=== PATIENT | male | born 1960 | race Caucasian/White ===

== ENCOUNTER 2020-09-18 15:41 | Outpatient (RCR) | payer OTHER, SELFPAY | END 2020-09-18 23:59 | LOC: IMMUN 15:41 | PROVIDERS: PCP Family Medicine; Referring Provider Family Medicine; Visit Provider Family Medicine | DX: Z23 Encounter for immunization (principal) | CPT/HCPCS: 0001A; 91300 ==

== ENCOUNTER → 2021-12-06 | Outpatient (CLI) | payer OTHER, SELFPAY ==
[2021-12-06 18:37] LABS: CRP < 2.90 mg/L (0.0-3.0)
[2021-12-08 16:09] LABS: Endomysial Antibody IgA Negative (Negative)
[2021-12-09 16:54] LABS: Immunoglobulin A 312 mg/dL (61-437); t-Transglutaminase IgA <2 U/mL (0-3)
== END | disposition home or self-care (01) ==
LOC: MTLAB 15:53
PROVIDERS: PCP Family Medicine; Referring Provider Internal Medicine Gastroenterology; Visit Provider Internal Medicine Gastroenterology
DX: R10.9 Unspecified abdominal pain (principal)
CPT/HCPCS: 36415; 82784; 83516; 86140; 86255

== ENCOUNTER → 2022-02-24 | Outpatient (CLI) | payer OTHER, SELFPAY ==
--- NOTE | 2022-02-24 08:20 | EKG12_ITS ---
Test Reason : PRE OP Blood Pressure : / mmHG Vent. Rate : 055 BPM Atrial Rate : 055 BPM P-R Int : 166 ms QRS Dur : 078 ms QT Int : 402 ms P-R-T Axes : 069 033 050 degrees QTc Int : 384 ms Sinus bradycardia Otherwise normal ECG Confirmed by MERY PARRA, BRIGIDA ([id number]), acquisition editor NEAL EARLY ([id number]) on 02/25/2022 2:06:32 PM Referred By: Herminio Romero Confirmed By:DELIO ORDONEZ MD
== END | disposition home or self-care (01) ==
LOC: PSN 08:18
PROVIDERS: PCP Family Medicine; Referring Provider Urology; Visit Provider Urology
DX: Z01.810 Encounter for preprocedural cardiovascular examination (principal)
CPT/HCPCS: 93005

== ENCOUNTER → 2022-03-17 | Outpatient (CLI) | payer OTHER, SELFPAY ==
[2022-03-17 16:08] LABS: Hematocrit 45.3 % (40-54); Hemoglobin 15.6 g/dL (13.0-16.5); Mean Corp Hgb Conc 34.4 g/dL (32-36); Mean Corpuscular Hgb 32.9 pg (27.0-32.0); Mean Corpuscular Volume 95.6 fL (80-94); Mean Platelet Vol. 9.2 fl (6.2-12.0); Platelet Count 235 K/mm3 (150-450); RBC Distribution Width CV 12.2 % (11.6-14.6); RBC Distribution Width SD 43.4 fl (35.1-43.9); Red Blood Count 4.74 M/mm3 (4.6-6.2); White Blood Count 4.9 K/mm3 (4.4-11.0)
[2022-03-17 17:04] LABS: Anion Gap 6 (5-15); BUN 17 mg/dL (7-18); BUN/Creat Ratio 11.3 RATIO (10-20); Calcium,Total 8.9 mg/dL (8.5-10.1); Chloride 106 mmol/L (98-107); Creatinine, Serum 1.51 mg/dL (0.70-1.30); EST Glomerular Filtration Rate 50 mL/min (>60); Est Glom Filt Rate - Afr Amer 61 mL/min (>60); Glucose 95 mg/dL (74-106); Potassium 3.7 mmol/L (3.5-5.1); Sodium Level 140 mmol/L (136-145)
== END | disposition home or self-care (01) ==
LOC: LAB 15:30
PROVIDERS: PCP Family Medicine; Visit Provider Urology
DX: Z01.812 Encounter for preprocedural laboratory examination (principal)
CPT/HCPCS: 36415; 80048; 85027

== ENCOUNTER 2022-03-25 17:14 | Observation (INO) | payer OTHER, SELFPAY ==
[2022-03-25 17:15] VITALS: BP 115/73; PULSE 50; RESP 16; TEMP 36.2; O2SAT 100; BMI 22.7
--- NOTE | 2022-03-25 17:57 | EDS_ITS ---
HPI History of Present Illness Chief Complaint: Flank Pain Informant: patient and spouse/S.O. Narrative Narrative: [id number] male states that this morning he underwent lithotripsy with Dr. Romero [place]. He states he had a stone on his right side. He states that once he woke up he began to have some horrible pain in his right flank and is umbilical area. He states he went home took some Percocet and Zofran and ibuprofen and is continued to vomit and have pain. Family states they attempted to reach Dr. Romero but the instructions on the discharge stated that if he was vomiting to come to emergency and he really was not able to tolerate much p.o. fluids. He states he is urinated 3 times the first tube was bloody and the second 1 was more of a cola colored. No fevers. No bruising. PFSH PFSH Medical History (Updated 03/25/22 @ 18:[address] Bear Seals DO) Kidney stones Home Medications bismuth subsalicylate 262 mg tablet (Kaopectate (bismuth subsalicylate)) 1 tab PO DAILY PRN PRN IBS 03/25/22 [History Last Taken 2 Days Ago ~03/23/22] Allergy/AdvReac Type Severity Reaction Status Date / Time azithromycin AdvReac PT UNSURE Verified 03/25/22 17:14 [From Zithromax Z-Edil] OF REACTION hydromorphone [From Dilaudid] AdvReac Vomiting Verified 03/25/22 17:14 Surgical History (Updated 03/25/22 @ 18:[address] Bear Seals DO) Hx of lithotripsy Social History (Updated 03/25/22 @ 17:[address] Bear Seals DO) Smoking Status: Never smoker substance use type: does not use ROS ROS ED Constitutional Constitutional ED: Denies chills, fever(s) or weight loss Eyes Eyes: Denies change in vision or diplopia ENT ENT ED: Denies ear pain, rhinorrhea or sore throat Cardiovascular Cardiovascular: Denies chest pain, orthopnea, palpitations or racing heartbeat Respiratory/Chest Respiratory/Chest: Denies cough, dyspnea or orthopnea Gastrointestinal Gastrointestinal: Reports abdominal pain, nausea and vomiting; Denies diarrhea Genitourinary Genitourinary ED: Reports hematuria; Denies dysuria or urinary frequency Musculoskeletal Musculoskeletal: Denies arthralgias or myalgias Integumentary Denies abscess or rash Neurologic Neurologic: Denies headache(s) or weakness Psychiatric Psychiatric: Denies anxiety, depression, suicidal ideation or suicidal thoughts Endocrine Endocrinology: Denies polydipsia, polyphagia or polyuria Allergic/Immunologic Allergic/Immunologic ED: Denies mouth swelling, tongue swelling or urticaria EXAM Physical Exam Const Vital Signs: 03/25/22 17:15 03/25/22 17:48 Temperature 97.2 F L Temperature Source Temporal Pulse Rate 50 L Respiratory Rate 16 Respiratory Effort Normal Respiratory Pattern Normal Blood Pressure 115/73 Blood Pressure Mean 87 Pulse Ox 100 Oxygen Delivery Method Room Air Positive well nourished and well developed General Appearance ED: well developed HEENT Reports normocephalic, head/scalp atraumatic and moist mucous membranes Eyes PERRL and EOMs intact bilaterally Neck no lymphadenopathy, supple and no JVD Resp normal respiratory effort and clear to auscultation bilaterally Cardio regular rate, regular rhythm and no murmurs GI normal to inspection, nondistended, normoactive bowel sounds and non-tender Palpation: soft Back/Spine no CVA tenderness and normal ROM Extremity normal to inspection General Extremety ED: Negative for edema General Extremity: Negative for edema Neuro oriented x3 and CN's II-XII intact bilaterally Sensorium / Orientation: alert Motor Exam: strength 5/5 throughout Psych mental status grossly normal Mood & Affect: Negative for depressed or tearful Skin no rashes or lesions noted and no wounds MDM MDM MDM Narrative Medical decision making narrative: White count of 10. Creatinine 1.51. CT abdomen pelvis demonstrates ur eterolithiasis distally some hydronephrosis. Patient received pain and nausea medications as well as IV fluids. I spoke with Dr. Romero who is come to the emergency department to evaluate the patient and he will admit the patient to his service and plan on ureteral stent tomorrow. Lab Data Attestation: I reviewed the patient's lab results. Labs: Laboratory Results - last 24 hr 03/25/22 03/25/22 17:55 17:55 WBC 10.0 RBC 4.82 Hgb 15.6 Hct 46.7 MCV 96.9 H MCH 32.4 H MCHC 33.4 RDW Std Deviation 43.4 RDW Coeff of Marcie 12.0 Plt Count 258 MPV 9.4 Immature Gran % (Auto) 0.500 Neut % (Auto) 93.1 H Lymph % (Auto) 3.9 L [place] % (Auto) 2.4 Eos % (Auto) 0.0 Baso % (Auto) 0.1 Absolute Neuts (auto) 9.3 H Absolute Lymphs (auto) 0.39 L Nucleated RBC % 0 Sodium 137 Potassium 4.1 Chloride 101 Carbon Dioxide 27.0 Anion Gap 9 BUN 15 Creatinine 1.51 H Estim Creat Clear Calc 53.72 Est GFR (MDRD) Af Amer 61 Est GFR (MDRD) Non-Af 50 L BUN/Creatinine Ratio 9.9 L Glucose 129 H Calcium 9.3 Discharge Plan Dx/Rx/DC Orders Clinical Impression: Hx of lithotripsy, Ureterolithiasis, Acute right flank pain Disposition Disposition: Acute Care [facility]
--- NOTE | 2022-03-25 17:57 | CT_ITS ---
STUDY: CT Abdomen And Pelvis W/O Contrast Injection 03/25/2022 6:44 PM REASON FOR EXAM: Male, 61 years old. ABDOMINAL PAIN Kidney Stone TECHNIQUE: Transaxial images were obtained without oral contrast, and without intravenous contrast. Individualized dose optimization techniques were used for this CT. COMPARISON: None. FINDINGS: The visualized lung bases are unremarkable. The visualized portions of the heart are within normal limits. There are hypodensities of the liver. These maybe cysts but are indeterminate and other etiologies are not excluded. ACR White Paper guidelines ([place], et al. JACR 2017; 14(11):4057-4733.) suggest the following. For patients with low risk of malignancy, no further follow-up is necessary. For patients with high risk of malignancy (known malignancy with a propensity to metastasize to the liver, cirrhosis, and/or other hepatic risk factors), recommend follow-up abdominal CT or MR in 6 months. Unremarkable gallbladder and extrahepatic biliary system. Unremarkable spleen. Unremarkable pancreas. Unremarkable bilateral adrenal glands. Non obstructive 2 mm right renal parenchymal stones. Mild hydronephrosis caused by right distal ureteral stone and 3.4 mm and 2 mm UVJ stone. No acute findings of the left kidney. Unremarkable visualized stomach. Unremarkable small intestine. There are multiple colonic diverticula consistent with diverticulosis. There is non-visualization of the appendix. There are no acute findings of the abdominal aorta. Unremarkable inferior vena cava. Subcentimeter mesenteric lymph nodes. Unremarkable urinary bladder. There are prostatic calcifications. Unremarkable abdominal wall. Unremarkable osseous structures. CT/Abdomen/Pelvis without Cont IMPRESSION: (NOT LISTED IN ORDER OF SIGNIFICANCE) Liver hypodensities. ACR White Paper guidelines ([place], et al. JACR 2017; 14(11):4780-5989.) suggest the following. For patients with low risk of malignancy, no further follow-up is necessary. For patients with high risk of malignancy (known malignancy with a propensity to metastasize to the liver, cirrhosis, and/or other hepatic risk factors), recommend follow-up abdominal CT or MR in 6 months. Mild hydronephrosis caused by right distal ureteral stone and 3.4 mm and 2 mm UVJ ureteral stone Other findings as above. Electronically Signed: Timo Solis MD at 18:48 EDT ,
[2022-03-25 18:13] LABS: Absolute Lymphocyte Count 0.39 X10^3/uL (0.83-4.51); Absolute Neutrophil Count 9.3 X10^3/uL (2.0-7.7); Basophil# 0.01 X10^3/uL; Basophil% 0.1 % (0-1); Hematocrit 46.7 % (40-54); Hemoglobin 15.6 g/dL (13.0-16.5); Lymphocyte # 0.39 X10^3/ul (0.83-4.51); Lymphocyte % 3.9 % (19-41); Mean Corp Hgb Conc 33.4 g/dL (32-36); Mean Corpuscular Hgb 32.4 pg (27.0-32.0); Mean Corpuscular Volume 96.9 fL (80-94); Mean Platelet Vol. 9.4 fl (6.2-12.0); Monocyte# 0.24 X10^3/uL; Monocyte% 2.4 % (0-10); NRBC Flagged by Analyzer 0 % (0-5); Neutrophil # 9.27 X10^3/uL (2.7-7.7); Neutrophil % 93.1 % (47-70); POSITIVE DIFFERENTIAL YES; Platelet Count 258 K/mm3 (150-450); RBC Distribution Width SD 43.4 fl (35.1-43.9); Red Blood Count 4.82 M/mm3 (4.6-6.2)
[2022-03-25] MEDS: Ondansetron 4 MG/2 ML Vial IV (18:15)
[2022-03-25] MEDS: Ketorolac 15 MG/ML Vial IV (18:15)
[2022-03-25] MEDS: Morphine 4 MG/ML Syringe IV (18:15)
[2022-03-25] MEDS: 0.9% Normal Saline 1,000 ML 999 ML IV (18:15)
[2022-03-25 18:27] LABS: Anion Gap 9 (5-15); BUN 15 mg/dL (7-18); BUN/Creat Ratio 9.9 RATIO (10-20); Calcium,Total 9.3 mg/dL (8.5-10.1); Chloride 101 mmol/L (98-107); Creatinine, Serum 1.51 mg/dL (0.70-1.30); EST Glomerular Filtration Rate 50 mL/min (>60); Est Glom Filt Rate - Afr Amer 61 mL/min (>60); Estimated Creatinine Clearance 53.72 ml/min; Glucose 129 mg/dL (74-106); Potassium 4.1 mmol/L (3.5-5.1); Sodium Level 137 mmol/L (136-145)
[2022-03-25 18:43] LABS: Differential Indicated SCAN CRITERIA MET
--- NOTE | 2022-03-25 18:48 | PCM.HP.STD ---
HPI - General General Date of Service: 03/25/22 HPI Narrative LAZ JOSEPH, is a 61 M who presents to emergency room with severe renal colic Lithotripsy done and presented with severe colic CAT scan was done demonstrated small several small stones Steinstrasse in the right ureter there are passing but he had severe pain so plan to admit the patient for pain control and he will probably need a stent tomorrow. PFSH Medical History (Updated 03/25/22 @ 18:[address] Bear Seals DO) Kidney stones Home Medications bismuth subsalicylate 262 mg tablet (Kaopectate (bismuth subsalicylate)) 1 tab PO DAILY PRN PRN IBS 03/25/22 [History Last Taken 2 Days Ago ~03/23/22] Allergy/AdvReac Type Severity Reaction Status Date / Time azithromycin AdvReac PT UNSURE Verified 03/25/22 17:14 [From Zithromax Z-Edil] OF REACTION hydromorphone [From Dilaudid] AdvReac Vomiting Verified 03/25/22 17:14 Surgical History (Updated 03/25/22 @ 18:[address] Bear Seals DO) Hx of lithotripsy Social History (Updated 03/25/22 @ 17:[address] Bear Seals DO) Smoking Status: Never smoker substance use type: does not use Vital Signs Vital Signs Vital Signs: 03/25/22 17:15 03/25/22 17:48 Temperature 97.2 F L Temperature Source Temporal Pulse Rate 50 L Respiratory Rate 16 Respiratory Effort Normal Respiratory Pattern Normal Blood Pressure 115/73 Blood Pressure Mean 87 Pulse Ox 100 Oxygen Delivery Method Room Air Weight Weight: 73.936 kg Body Mass Index (BMI) 22.7 Results Lab / Micro Data Result Diagrams: 03/25/22 17:55 03/25/22 17:55 Labs: Laboratory Results - last 24 hr 03/25/22 17:55: WBC 10.0, RBC 4.82, Hgb 15.6, Hct 46.7, MCV 96.9 H, MCH 32.4 H, MCHC 33.4, RDW Std Deviation 43.4, RDW Coeff of Marcie 12.0, Plt Count 258, MPV 9.4, Immature Gran % (Auto) 0.500, Neut % (Auto) 93.1 H, Lymph % (Auto) 3.9 L, Hendricks % (Auto) 2.4, Eos % (Auto) 0.0, Baso % (Auto) 0.1, Absolute Neuts (auto) 9.3 H, Absolute Lymphs (auto) 0.39 L, Nucleated RBC % 0 03/25/22 17:55: Sodium 137, Potassium 4.1, Chloride 101, Carbon Dioxide 27.0, Anion Gap 9, BUN 15, Creatinine 1.51 H, Estim Creat Clear Calc 53.72, Est GFR (MDRD) Af Amer 61, Est GFR (MDRD) Non-Af 50 L, BUN/Creatinine Ratio 9.9 L, Glucose 129 H, Calcium 9.3
[2022-03-25 19:00] VITALS: BP 111/72; PULSE 66; RESP 18; TEMP 37; O2SAT 97
[2022-03-25 19:08] VITALS: BMI 23.6
[2022-03-25 19:45] LABS: Mucous, Urine 0 SEEN /hpf (<or=2+); White Blood Cells 0 SEEN /hpf (0-5)
[2022-03-25 19:47] LABS: Color, Urine Brown (Yellow); Glucose, Dipstick Normal (Normal); Leukocyte Esterase-Dipstick 25 /ul (Negative); Nitrite-Dipstick Positive (Negative); Occult Blood-Urine 250 /ul (Negative); Protein-Dipstick 100 mg/dl (Negative); Specific Gravity, Urine 1.025 (1.002-1.030); Urine Bilirubin Dipstick Negative (Negative); Urine Clarity Cloudy (Clear); Urine Urobilinogen Normal (Normal)
[2022-03-25 19:53] LABS: Ketone-Dipstick 150 mg/dl (Negative)
[2022-03-25] MEDS: Lactated Ringers 1,000 ML 150 ML IV (19:53)
[2022-03-25 19:58] LABS: Anisocytosis RARE; Macrocytosis RARE; Platelet Estimate ADEQUATE (ADEQ); Red Cell Morphology N CHROM NORMAL (NORM C&C)
[2022-03-25 20:01] LABS: Red Blood Cells-Urine > 100 SEEN /hpf (0-5)
[2022-03-25 20:02] LABS: Bacteria 4+ /hpf (None Seen); Squamous Epithelial Cells - UA 0-5 SEEN /hpf (0-5)
[2022-03-25 20:03] VITALS: BP 111/72; PULSE 66; RESP 18; TEMP 37; O2SAT 97
[2022-03-25] MEDS: Metoclopramide 10 MG/2 ML Vial IV (20:20)
[2022-03-25] MEDS: Cefazolin 1 GM/50 ML BAG IV (20:22)
[2022-03-26] VITALS (10 sets, daily range): BP systolic 84–103; BP diastolic 52–68; PULSE 58–70; RESP 16–18; TEMP 36.2–37.2; O2SAT 95–99; BMI 23.6
[2022-03-26] MEDS: Ketorolac 15 MG/ML Vial IV (02:07)
[2022-03-26] MEDS: Lactated Ringers 1,000 ML 150 ML IV ×2 (02:09→09:07)
[2022-03-26] MEDS: Cefazolin 1 GM/50 ML BAG IV (05:31)
--- NOTE | 2022-03-26 05:55 | EKG12_ITS ---
Test Reason : PRE OP Blood Pressure : / mmHG Vent. Rate : 064 BPM Atrial Rate : 064 BPM P-R Int : 158 ms QRS Dur : 088 ms QT Int : 386 ms P-R-T Axes : 062 015 037 degrees QTc Int : 398 ms Normal sinus rhythm Normal ECG When compared with ECG of 24-FEB-2022 08:28, No significant change was found Confirmed by NORM PARRA, DIEGO ([id number]), editorial intern NEAL EARLY ([id number]) on 03/29/2022 12:49:11 PM Referred By: ALICIA Confirmed By:DIEGO ZHENG MD
[2022-03-26] MEDS: Lidocaine Jelly 2% 20 ML Syringe (URO-JET) 1 APPLIC (08:25)
--- NOTE | 2022-03-26 08:29 | PCM.OPRPT ---
Report of Operation Date of Procedure: 03/26/22 Pre-Operative Diagnosis: ureteral calculi Post-Operative Diagnosis: same Surgery/Procedure Performed:: cystoscopy and right stent placement. Description of Surgical Findings:: Patient was taken back to the operating room after induction of general anesthesia, the patient was placed in dorsolithotomy position. The urethra and genitals were prepped and draped in usual sterile fashion. Using a 21 [place] rigid cystourethroscope the entire length of the urethra was normal then went into the bladder. Identified the trigone the left and right ureteral orifice. I then cannulated the right orifice and advanced a wire up into the kidney. I then had an E flux of very dark-colored and brownish urine from the right kidney. There are a few stone fragments in the bladder.. I then backloaded a 5 Trin[place] open ended catheter over the wire and injected contrast to delineate the anatomy. After the retrograde was performed I then used fluoroscopic images and guidance to advanced a wire up into the kidney and over the 0.038 glidewire I advanced a 6 Trin[place] by 26 cm double pigtail stent. I then pulled the 0.038 Glidewire off and the stent coiled in the kidney bladder good position. The bladder was then drained. We confirmed the position of the stent by fluoroscopy. Patient anesthetic was reversed and was taken back to the PACU in good condition. Surgeon: Herminio Romero Type of Anesthesia: General Drains: stent Admit VTE Documentation VTE Present on Admission: No VTE Mechan Device Prophylaxis: SCD's VTE Pharm Prophylaxis ordered?: No
== END 2022-03-26 13:20 | disposition home or self-care (01) ==
LOC: ED 18:47 → MS3 03-26 11:41
PROVIDERS: Admitting Provider Urology; Emergency Provider Emergency Medicine; PCP Family Medicine; Visit Provider Urology
PROC: (CPT 52332; principal; 2022-03-26 08:00)
DX: N13.2 Hydronephrosis with renal and ureteral calculous obstruction (principal); K58.9 Irritable bowel syndrome, unspecified; R00.1 Bradycardia, unspecified
CPT/HCPCS: 52332; 00910; 74176; 76000; 80048; 81001; 85025; 93005; 96361; 96365; 96366; 96375; 96376; 99218; 99282; J7030; J7120; A4216; C1769; G0378; J2405

== ENCOUNTER → 2023-08-11 | Outpatient (CLI) | payer OTHER, SELFPAY ==
--- OUTSIDE RECORDS SUMMARY | 2023-08-11 12:23 | XMS RPT_ITS | CCD ---
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 Name Role Phone ROMAN, DR JAIME Mitchell Attending Unavaila ble ROMAN, DR JAIME Mitchell Primary Care Unavaila ble ROMAN, DR JAIME Mitchell Admitting Unavaila mejia ARREAGA MD, VADIM Holloway Primary Care Physician PÉREZ , DR MASTERS A Primary Care Physician [phone] PÉREZ DO, DR MASTERS A Primary Care Physician PÉREZ, SONAM Primary Care Unavailable PÉREZ, SONAM Attending Unavailable PÉREZ, SONAM Primary Care Unavailable PÉREZ, SONAM Attending Unavailable GIBSON PARRA, VADIM Holloway Primary Care Unavailable CHRIS PARRA, DR PIZANO Attending Unavailluis e PÉREZ, SONAM Primary Care Unavailable PÉREZ, SONAM Attending Unavailable PÉREZ, SONAM Primary Care Unavailable PÉREZ, SONAM Attending Unavailable PÉREZ, SONAM Attending Unavailable GIBSON PARRA, VADIM Holloway Primary Care Unavailable VADIM ARREAGA MD Primary Care Unavailable PÉREZSONAM Attending Unavailable Allergies Allergy Classification Reported Allergen(s) Allergy Type Date of Onset Reaction(s) Facility (6 sources) Azithromycin; Translations: [azithromycin] Drug Allergy [facility] Work Phone: (6 sources) HYDROmorphone; Translations: [hydromorphone] Drug Allergy Vomiting (disorder), Nausea (finding) [facility] Work Phone: Medications Current Medications Medication Drug Class(es) Dates Sig (Normalized) Sig (Original) hydrOXYzine hydrochloride 25 mg oral tablet (1 source) Antihistamine Start: 03-08-2023 hydrOXYzine hydrochloride 25 mg oral tablet Dose : 25 mg = 1 tab(s), Oral, q6h, PRN as needed for anxiety, # 15 tab(s), 0 Refill(s), [facility]: [id number], Acute reaction to stress, 179, cm, 08/31/22 15:55:00 EST, Height Start Date: 08/31/22 Status: Ordered Ibuprofen (2 sources) Nonsteroidal Anti-inflammatory Drug Start: 03-31-2022 ibuprofen 0 Refill(s) Start Date: 03/31/22 Status: Ordered Multivitamin preparation (1 source) Start: 11-28-2019 take 1 tablet by mouth once daily Multivitamin Dose = 1 tab(s), Oral, Daily, 0 Refill(s) Start Date: 11/28/19 Status: Ordered rosuvastatin calcium 10 mg oral tablet (1 source) HMG-CoA Reductase Inhibitor Start: 09-14-2022 rosuvastatin 10 mg oral tablet See Instructions, every other day with evening meal, # 15 tab(s), 1 Refill(s), [facility]: [facility] #[id number], 179, cm, 08/31/22 15:55:00 EST, Height Start Date: 09/14/22 Status: Ordered tamsulosin hydrochloride 0.4 mg oral capsule (2 sources) alpha-Adrenergic Abraham Start: 01-08-2022 tamsulosin 0.4 mg oral capsule Dose : 0.4 mg = 1 cap(s), Oral, qDay, # 30 cap(s), 0 Refill(s), [facility]acy: [id number] Right nephrolithiasis Flank pain, 180, cm, 01/08/22 8:16:00 EDT, Height Start Date: 01/08/22 Status: Ordered Completed/Discontinued Medications Medication Drug Class(es) Dates Sig (Normalized) Sig (Original) apixaban 5 mg oral tablet (4 sources) Factor Xa Inhibitor Start: 04-01-2022 End: 05-31-2022 Eliquis 5 mg oral tablet Dose : 5 mg = 1 tab(s), Oral, BID, # 60 tab(s), 1 Refill(s), 74.5 Start Date: 04/01/22 Stop Date: 05/31/22 Status: Ordered Problems Active Problems Problem Classification Problem Date Documented Da te Episodic/Chronic Disorders of lipid metabolism (7 sources) Dyslipidemia; Translations: [Hyperlipidemia] 08-16-2019 Chronic Esophageal disorders (6 sources) Gastroesophageal reflux disease 08-18-2017 Chronic Gastritis and duodenitis (6 sources) Gastritis 08-16-2019 Episodic Other ear and sense organ disorders (6 sources) Hearing loss 07-02-2020 Chronic Other injuries and conditions due to external causes (1 source) Injury of musculoskeletal system 08-12-2022 Episodic Unclassified (1 source) Patient encounter status 08-12-2022 Viral infection (6 sources) Herpes labialis 08-16-2019 Episodic Past or Other Problems Problem Classification Problem Date Documented Da te Episodic/Chronic Abdominal pain (2 sources) Unspecified abdominal pain; Translations: [Unspecified abdominal pain] Onset: 12-20-2021 Episodic Calculus of urinary tract (8 sources) Kidney stone; Translations: [Calculus of kidney] Onset: 01-08-2022 02-20-2020 Episodic Results Test Name Value Interpretation Reference Range Facil ity Encounters Encounter Date Encounter Type Care Provider Facility Start: 09-30-2022 End: 10-01-2022 ambulatory SONAM PÉREZ Facility:B Start: 09-30-2022 End: 09-30-[address] SONAM ORTEZ DO [facility] Start: 09-09-2022 End: 09-10-2022 ambulatory SONAM PÉREZ Facility:B Start: 07-11-2022 End: 07-12-2022 ambulatory SONAM PÉREZ Facility:B Start: 07-11-2022 End: 07-11-[address] SONAM ORTEZ DO [facility] Start: 04-01-2022 End: 04-02-2022 ambulatory SONAM PÉREZ Facility:B Start: 04-01-2022 End: 04-01-[address] SONAM ORTEZ DO [facility] Start: 01-13-2022 End: 01-14-2022 ambulatory VADIM ARREAGA MD Facility:B Start: 01-13-2022 End: 01-13-[address] SONAM ORTEZ DO [facility] Start: 01-08-2022 End: 01-13-2022 ambulatory SONAM ORTEZ Facility:B Start: 01-08-2022 End: 01-12-[address] SONAM ORTEZ DO [facility] Start: 12-20-2021 End: 12-25-2021 ambulatory VADIM ARREAGA MD Facility:A Start: 04-29-2021 End: 04-29-2021 Patient encounter procedure VADIM ARREAGA MD [facility] Start: 10-15-2020 End: 10-15-[address] JAIME OWENS [facility] Procedures Date Procedure Procedure Detail Performing Clinician Start: 01-03-2018 Miscellaneous diagno stic tests VADIM ARREAGA MD Immunizations Immunization Date Immunization Notes Care Provider [facility] 06-15-2021 SARS-CoV-2 mRNA (tozinameran) vaccine DR SONAM ORTEZ DO [facility] 04-15-2021 influenza virus vaccine, unspecified formulation DR SONAM ORTEZ DO [facility] 10-15-2020 SARS-CoV-2 mRNA (tozinameran) vaccine DR SONAM ORTEZ DO [facility] 09-18-2020 SARS-CoV-2 mRNA (tozinameran) vaccine DR SONAM ORTEZ DO [facility] [place] Payers Date Payer Category Payer Unknown [id number] 2021 Unknown [id number] 1960 Unknown [id number] 2.16.8 [id number] 1960 Unknown [id number] 2.16.8 [id number] 1960 Unknown [id number] 2.16.8 [id number] 1960 Unknown [id number] 2.16.8 [id number] 1960 Unknown [id number] 2.16.8 [id number] 1960 Unknown [id number] 2.16.8 [id number] 1960 Unknown [id number] 2.16.8 [id number] Social History Date Type Detail Facility Start: 11-28-2019 Never smoked t shiraz (finding) [facility] Sex Assigned At Male [facility] Clinical Notes 09-18-2020 to 09-30-2022 LaboratoryRadiology[facility]iology[facility]atory Note Date & Type Note Facility 09-30-2022 Note ORIGINAL NM MYOCARDIAL SPECT STRESS/REST CLINICAL STATEMENT:chest pain with exertion TECHNIQUE: Stress Protocol:Avelino Time Exercised:9minutes Predicted Max HR:158 Max HR Achieved:157 Percent Max HR:99% Peak Systolic BP:183 Rate-Pressure product: 282 Radiopharmaceutical(rest): Tc-99m Sestamibi IV Dose:10.4 mCi Radiopharmaceutical(stress): Tc-99m Sestamibi IV Dose:30.9 mCi SPECT acquisition:SPECT reconstruction and reorientation into short axis, vertical and horizontal long axis planes Quantitative LVEF assessment COMPARISON:None REPORT:Overall, image quality is good. Rotating planar images show no significant patient motion. SPECT perfusion images during rest and stress show homogenous radiotracer uptake. No defect to suggest ischemia or infarction. SDS is 0. SSS is 0. GATED SPECT images show normal LV size and function. LVEF calculated at 60% IMPRESSION: 1. No evidence for ischemia. 2. No evidence for infarction. 3. Normal LV size and function. 4. No previous for comparison. Interpreted By: Shawn Ch Preliminary Report By: Shawn Ch Electronically Signed By: Shawn Ch Dictated Date: 09/30/2022 1:25:07 PM Prelim Date: 09/30/2022 1:25:07 PM Sign Date: 09/30/2022 1:29:04 PM Ordering Provider:[facility] 09-30-2022 Note ORIGINAL NM MYOCARDIAL SPECT STRESS/REST CLINICAL STATEMENT:chest pain with exertion TECHNIQUE: Stress Protocol:Avelino Time Exercised:9minutes Predicted Max HR:158 Max HR Achieved:157 Percent Max HR:99% Peak Systolic BP:183 Rate-Pressure product: 282 Radiopharmaceutical(rest): Tc-99m Sestamibi IV Dose:10.4 mCi Radiopharmaceutical(stress): Tc-99m Sestamibi IV Dose:30.9 mCi SPECT acquisition:SPECT reconstruction and reorientation into short axis, vertical and horizontal long axis planes Quantitative LVEF assessment COMPARISON:None REPORT:Overall, image quality is good. Rotating planar images show no significant patient motion. SPECT perfusion images during rest and stress show homogenous radiotracer uptake. No defect to suggest ischemia or infarction. SDS is 0. SSS is 0. GATED SPECT images show normal LV size and function. LVEF calculated at 60% IMPRESSION: 1. No evidence for ischemia. 2. No evidence for infarction. 3. Normal LV size and function. 4. No previous for comparison. Interpreted By: Shawn Ch Preliminary Report By: Shawn Ch Electronically Signed By: Shawn Ch Dictated Date: 09/30/2022 1:25:07 PM Prelim Date: 09/30/2022 1:25:07 PM Sign Date: 09/30/2022 1:29:04 PM Ordering Provider:[facility] 01-10-2022 Note . MICRO - Microbiology PROCEDURE: Urine Culture [*1] SOURCE: Urine, Clean Catch BODY SITE: COLLECTED DATE/TIME: 01/08/2022 10:55 EDT RECEIVED DATE/TIME: 01/08/2022 16:55 EDT START DATE/TIME: 01/08/2022 16:55 EDT FREE TEXT SOURCE: FINAL REPORTS Final Report [] Verified Date/Time/Personnel: 01/10/2022 07:36 EDT No growth at 48 hours. PRELIMINARY REPORTS Preliminary Report [] Verified Date/Time/Personnel: 01/09/2022 09:44 EDT No growth to date Performing Locations *1: This test was performed at: [facility], [address] [place] [address], [facility] , Counts include 234 beds at the [facility] ([place]) 09-18-2020 Evaluation + Plan note Future Scheduled TestsProstate Specific Antigen 09/18/20Complete Blood Count 09/18/20Lipid Profile 09/18/20Complete Metabolic Panel 09/18/20US Abdomen Complete 04/29/[address] [facility] Evaluation + Plan note Future Appointments Appointment Date:01/13/2022 03:00:00 PM Scheduled Provider: Location:[facility] Appointment Type:CT Abdomen and Pelvis w/o Contrast Future Scheduled TestsCT Abdomen and Pelvis w/o contrast 01/13/[address] [facility] Evaluation + Plan note Future Appointments Appointment Date:10/12/2022 04:20:00 PM Scheduled Provider:SONAM ORTEZ DO Location:[facility] Appointment Type:PC OV Future Scheduled TestsLipid Profile 10/26/22Complete Metabolic Panel 10/26/[address] [facility] Hospital course Narrative No data available for this section [facility] Hospital Discharge instructions No data available for this section [facility] Note ROHIT, ZENY A MD: SIGN, VERIFY Event Display: VL Venous US/Doppler One Leg (DVT) [facility] Note ZENY BEE MD: SIGN, VERIFY Event Display: VL Venous US/Doppler One Leg (DVT) [facility] Progress note No data available for this section [facility] Summary Purpose Family History No Family History Records FoundNo Family History Records Found Advance Directives No Advanced Directives Records FoundNo Advanced Directives Records Found Additional Source Comments (unrecognized sect ion and content) No Status Records FoundNo Status Records Found INFORMATION SOURCE (unrecogn ized section and content) DATE CREATED AUTHOR AUTHOR'S ORGANIZ ATION 10/20/2022 [facility] ([place]) Care Team (unrecognized sect ion and content) Care Team Personnel Name: VADIM ARREAGA MD Position: P4 Physician - Primary Care Med Service: Active Provider Member Role: Primary Care Physician Address: Address: [address] [place] [address]- Care Team Related Persons Name: MOSES JOSEPH Address: Home [address] [address] [phone] Address: Temporary [address] [phone] Care Team Personnel Name: VADIM ARREAGA MD Position: P4 Physician - Primary Care Med Service: Active Provider Member Role: Primary Care Physician Address: Address: [address] Care Team Related Persons Name: MOSES JOSEPH Address: Home [address] [place], [place] [id number] Address: Temporary [address] [place], [place] [id number] Care Team Personnel Name: SONAM ORTEZ DO Position: P4 Physician - Primary Care Med Service: Active Provider Member Role: Primary Care Physician Address: Address: [address] [id number] Care Team Related Persons Name: MOSES JOSEPH Address: Home [address] [address] [phone] Address: Temporary [address] [place] [phone] Care Team Personnel Name: SONAM ORTEZ DO Position: P4 Physician - Primary Care Member Role: Primary Care Physician Address: Address: [facility] [address] Care Team Related Persons Name: MOSES JOSEPH Address: Home [address] [place] [phone] Address: Temporary [address] [place] [phone] Patient Care team informatio n (unrecognized section and content) Care Team Personnel Name: SONAM ORTEZ DO Position: P4 Physician - Primary Care Member Role: Primary Care Physician Address: Address: [facility] [address] Care Team Related Persons Name: MOSES JOSEPH Address: Home [address] [place] [phone] Address: Temporary [address] [place] [phone] FOR RECORDS PERTAINING TO PATIENTS WHO ARE OR HAVE BEEN ENROLLED IN A CHEMICAL DEPENDENCY/SUBSTANCEABUSE PROGRAM, SOME INFORMATION MAY BE OMITTED. This clinical summary was aggregated from multiple sources. Caution should be exercised in using it in the provision of clinical care. This summary normalizes information from multiple sources, and as a consequence, information in this document may materially change the coding, format and clinical context of patient data. In addition, data may be omitted in some cases. CLINICAL DECISIONS SHOULD BE BASED ON THE PRIMARY CLINICAL RECORDS. [employer] provides no warranty or guarantee of the accuracy or completeness of information in this document.
[2023-08-11 13:01] LABS: PSA,Total - Annual Screen 1.64 ng/mL (0.00-4.00)
== END | disposition home or self-care (01) ==
PROVIDERS: PCP Family Medicine; Referring Provider Urology; Visit Provider Urology
DX: Z12.5 Encounter for screening for malignant neoplasm of prostate (principal)
CPT/HCPCS: 36415; 84153; G0103